=== PATIENT | female | born 1995 | race Caucasian/White ===

== ENCOUNTER 2025-08-03 18:25 | Emergency (ER) | payer OTHER ==
[~2025-08-03] VITALS: Ht 167.6 cm; Wt 60.0 kg
[2025-08-03 19:00] VITALS: O2SAT 100
[2025-08-03] MEDS ORDERED: AMOX1TAB16 MT (20:32)
[2025-08-03] MEDS ORDERED: IBUP-1455 MT (20:32)
[2025-08-03] MEDS: CEFTRIAXONE SODIUM 1G VIAL IM ONE (21:02)
[2025-08-03] MEDS: KETOROLAC 30MG/ML VIAL IM ONE (21:02)
[2025-08-03 21:07] VITALS: BP 113/62; PULSE 74; RESP 14; TEMP 36.9; O2SAT 100
[2025-08-04] MEDS ORDERED: CEPH500C2 MT (14:27)
[2025-08-04] MEDS ORDERED: METH4TAB95 MT (14:27)
== END 2025-08-03 21:08 | disposition home or self-care (01) ==
LOC: ER 18:25
DX: L03.213 Periorbital cellulitis (principal); N39.0 Urinary tract infection, site not specified
CPT/HCPCS: 99284; 81025; 96372; J1885; J0696

== ENCOUNTER 2025-08-04 12:06 | Emergency (ER) | payer MEDICAID, OTHER ==
[~2025-08-04] VITALS: Ht 160 cm; Wt 55.0 kg
[~2025-08-04 12:06] MED LIST: AMOX1TAB16 MT; IBUP-1455 MT
[2025-08-04 12:08] VITALS: O2SAT 99
[2025-08-04 12:15] VITALS: TEMP 36.9; O2SAT 100
[2025-08-04] MEDS: DIPHENHYDRAMINE 25MG CAPSULE PO ONE (13:57)
[2025-08-04] MEDS ORDERED: CEPH500C2 MT (14:27)
[2025-08-04] MEDS ORDERED: METH4TAB95 MT (14:27)
[2025-08-04 15:30] VITALS: BP 117/71; PULSE 73; RESP 16
[2025-08-04] MEDS: KETOROLAC 30MG/ML VIAL IM ONE (15:30)
[2025-08-04] MEDS: DEXAMETHASONE 10 MG/ML VIAL IV ONE (15:33)
== END 2025-08-04 15:37 | disposition home or self-care (01) ==
LOC: ER 12:06
DX: B34.9 Viral infection, unspecified (principal); R53.81 Other malaise
CPT/HCPCS: 99283; 81025; Q0163; J1100; J1885